=== PATIENT | female | born 1995 | race Caucasian/White ===

== ENCOUNTER 2017-09-19 12:04 | Emergency (ER) | payer OTHER ==
[~2017-09-19] VITALS: Ht 162.6 cm; Wt 68.0 kg
[~2017-09-19 12:04] MED LIST: ACETAMINOPHEN-1 EAC1 PO; ALLERGY10 M1 PO; BACTROBAN15 GM TOP; BENTYL 20 MG TA20 M1 PO; DELTASONE20 MG PO; FLEXERIL PO; KEFLEX500 MG PO; NORCO 5-325 TA1 EACH PO; PROMETHAZINE HC25 M1 PO; SERTRALINE HCL50 MG; TRINATE TABLET1 TAB PO; ZOFRAN ODT4 MG PO
[2017-09-19 12:41] LABS: URINE BILIRUBIN NEGATIVE (Negative); URINE BLOOD NEGATIVE (Negative); URINE CLARITY CLEAR; URINE COLOR YELLOW; URINE GLUCOSE-RANDOM NEGATIVE (Negative); URINE KETONES NEGATIVE (Negative); URINE LEUKOCYTES-REFLEX TRACE (Negative); URINE NITRITE-REFLEX NEGATIVE (Negative); URINE PROTEIN NEGATIVE (Negative); URINE SPECIFIC GRAVITY 1.025 (1.005-1.030); URINE UROBILINOGEN 0.2 E.U./dl (0.2-1.0)
[2017-09-19 12:55] LABS: ABSOLUTE BASOPHILS 0.1 thou/uL (0.0-0.2); ABSOLUTE EOSINOPHILS 0.1 thou/uL (0.0-0.7); ABSOLUTE LYMPHOCYTES 2.1 thou/uL (0.8-5.3); ABSOLUTE MONOCYTES 0.6 thou/uL (0.0-1.2); ABSOLUTE NEUTROPHILS 4.2 thou/uL (1.6-8.1); BASOPHILS 0.7 %; EOSINOPHILS 0.8 %; HEMATOCRIT 38.4 % (37.0-47.0); HEMOGLOBIN 13.1 gm/dL (12.0-15.0); LYMPHOCYTES 30.4 %; MCH 30.5 pg (26.0-34.0); MCHC 34.1 g/dL (28.0-37.0); MCV 89.6 fL (80.0-100.0); MONOCYTES 8.6 %; MPV 8.9 fl. (7.2-11.1); NUCLEATED RBCS 0 /100WBC; PLATELET COUNT* 238 thou/uL (150-400); POLYS 59.5 %; RBC 4.29 mil/uL (4.20-5.00); RDW-CV 12.4 % (10.5-14.5)
[2017-09-19 12:57] LABS: CASTS None Seen /LPF (None Seen); CRYSTALS None Seen /LPF (None Seen); MUCUS 0-3 Light strn/LPF (None Seen); SQUAMOUS >10 Many /LPF (0-3)
[2017-09-19 12:58] LABS: URINE RBC 0-2 Rare /HPF (0-2); URINE WBC-REFLEX 6-15 Few /HPF (0-5)
[2017-09-19 13:04] LABS: CALCIUM 8.7 mg/dL (8.5-10.1); CREATININE 0.7 mg/dL (0.6-1.3); POTASSIUM 3.9 mmol/L (3.5-5.1)
[2017-09-19 13:08] LABS: ALBUMIN 3.3 g/dL (3.4-5.0); TOTAL BILIRUBIN 0.2 mg/dL (<0.1-1.0); TOTAL PROTEIN 6.9 g/dL (6.4-8.2)
[2017-09-19] MEDS ORDERED: PROAIR HFA8.5 GM INH (13:49)
[2017-09-19] MEDS ORDERED: PEPCID20 MG PO (13:49)
[2017-09-19] MEDS ORDERED: KEFLEX500 M1 PO (13:49)
[2017-09-19 13:58] VITALS: BP 105/65
--- NOTE | 2017-09-20 15:57 | EKG ---
[place] [address] ELECTROCARDIOGRAM REPORT Name: BRENT MEYER Room: [facility]#: [id number] Admission: 09/19/17 Attend Phys: Discharge: 09/19/17 Date of : [birth year] Report #: [id number] THIS REPORT FOR: //name// 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: [facility]-[id number] : 1995 Requested By: Taylor Cadena Order Number: [id number] MD: Linden Estrada Measurements Intervals [place] Rate: 70 P: 45 SD: 127 QRS: 53 QRSD: 83 T: 24 QT: 400 QTc: 432 Interpretive Statements Sinus rhythm Atrial premature complex Compared to ECG 10/23/2015 14:35:50 Atrial premature complex(es) now present Sinus arrhythmia no longer present Electronically Signed On 09-20-2017 15:57:43 FINGERER by Linden Estrada [email or web address] <ELECTRONICALLY SIGNED> By: Serjio Estrada MD, [facility] 09/20/17 1557 1313 1313 Serjio Estrada MD, [facility] /EPI
== END 2017-09-19 13:59 | disposition home or self-care (01) ==
LOC: M.ERS 12:04
PROVIDERS: Physician Assistant
DX: N39.0 Urinary tract infection, site not specified (principal); R06.00 Dyspnea, unspecified

== ENCOUNTER 2018-01-02 13:45 | Emergency (ER) | payer OTHER ==
[~2018-01-02] VITALS: Ht 162.6 cm; Wt 86.2 kg
[~2018-01-02 13:45] MED LIST changes: +KEFLEX500 M1 PO; +PEPCID20 MG PO; +PROAIR HFA8.5 GM INH
[2018-01-02] MEDS ORDERED: CYMBALTA20 MG PO (13:57)
[2018-01-02] MEDS ORDERED: FLEXERIL PO (14:19)
[2018-01-02] MEDS ORDERED: TORADOL 10 MG T10 MG PO (14:19)
[2018-01-02 14:29] VITALS: BP 96/41
== END 2018-01-02 14:30 | disposition home or self-care (01) ==
LOC: M.ERS 13:45
DX: R25.2 Cramp and spasm (principal); F32.9 Major depressive disorder, single episode, unspecified; Z90.49 Acquired absence of other specified parts of digestive tract

== ENCOUNTER 2018-02-06 16:10 | Emergency (ER) | payer OTHER ==
[~2018-02-06] VITALS: Ht 162.6 cm; Wt 90.7 kg
[~2018-02-06 16:10] MED LIST changes: +CYMBALTA20 MG PO; +TORADOL 10 MG T10 MG PO
[2018-02-06 16:38] LABS: URINE BILIRUBIN NEGATIVE (Negative); URINE BLOOD 2+ (Negative); URINE CLARITY CLEAR; URINE COLOR YELLOW; URINE GLUCOSE-RANDOM NEGATIVE (Negative); URINE KETONES NEGATIVE (Negative); URINE LEUKOCYTES-REFLEX NEGATIVE (Negative); URINE NITRITE-REFLEX NEGATIVE (Negative); URINE PROTEIN NEGATIVE (Negative); URINE SPECIFIC GRAVITY >= 1.030 (1.005-1.030); URINE UROBILINOGEN 0.2 E.U./dl (0.2-1.0)
[2018-02-06] MEDS ORDERED: NAPROSYN500 MG PO (16:54)
[2018-02-06 17:02] VITALS: BP 126/88
[2018-02-06 17:02] LABS: SQUAMOUS 4-10 Moderate /LPF (0-3)
[2018-02-06 17:03] LABS: BACTERIA-REFLEX 1-9 Few /HPF (None Seen); CASTS None Seen /LPF (None Seen); URINE RBC 0-2 Rare /HPF (0-2); URINE WBC-REFLEX 0-5 Rare /HPF (0-5)
[2018-02-06 17:04] LABS: CRYSTALS None Seen /LPF (None Seen)
== END 2018-02-06 17:03 | disposition home or self-care (01) ==
LOC: M.ERS 16:10
PROVIDERS: Physician Assistant
DX: Z32.02 Encounter for pregnancy test, result negative (principal); N94.6 Dysmenorrhea, unspecified; F32.9 Major depressive disorder, single episode, unspecified; Z90.49 Acquired absence of other specified parts of digestive tract

== ENCOUNTER 2018-03-26 22:16 | Emergency (ER) | payer OTHER ==
[~2018-03-26] VITALS: Ht 162.6 cm; Wt 90.7 kg
[~2018-03-26 22:16] MED LIST changes: +NAPROSYN500 MG PO
[2018-03-26] MEDS ORDERED: BIRTH CONTROL (22:38)
[2018-03-27 00:08] LABS: URINE BILIRUBIN NEGATIVE (Negative); URINE BLOOD TRACE (Negative); URINE CLARITY CLEAR; URINE COLOR YELLOW; URINE GLUCOSE-RANDOM NEGATIVE (Negative); URINE KETONES NEGATIVE (Negative); URINE LEUKOCYTES TRACE (Negative); URINE NITRITE NEGATIVE (Negative); URINE PROTEIN NEGATIVE (Negative); URINE SPECIFIC GRAVITY >= 1.030 (1.005-1.030); URINE UROBILINOGEN 0.2 E.U./dl (0.2-1.0)
[2018-03-27 00:08] LABS: ABSOLUTE BASOPHILS 0.1 thou/uL (0.0-0.2); ABSOLUTE EOSINOPHILS 0.1 thou/uL (0.0-0.7); ABSOLUTE LYMPHOCYTES 4.3 thou/uL (0.8-5.3); ABSOLUTE MONOCYTES 0.9 thou/uL (0.0-1.2); ABSOLUTE NEUTROPHILS 6.1 thou/uL (1.6-8.1); BASOPHILS 0.5 %; EOSINOPHILS 0.9 %; HEMATOCRIT 40.3 % (37.0-47.0); HEMOGLOBIN 13.5 gm/dL (12.0-15.0); LYMPHOCYTES 37.4 %; MCH 30.2 pg (26.0-34.0); MCHC 33.6 g/dL (28.0-37.0); MCV 89.8 fL (80.0-100.0); MONOCYTES 8.2 %; MPV 8.5 fl. (7.2-11.1); NUCLEATED RBCS 0 /100WBC; PLATELET COUNT* 302 thou/uL (150-400); RBC 4.49 mil/uL (4.20-5.00); RDW-CV 12.4 % (10.5-14.5); WBC 11.5 thou/uL (4.0-11.0)
[2018-03-27 00:20] LABS: CALCIUM 9.1 mg/dL (8.5-10.1); CREATININE 0.8 mg/dL (0.6-1.3); POTASSIUM 3.6 mmol/L (3.5-5.1)
[2018-03-27 00:24] LABS: ALBUMIN 3.7 g/dL (3.4-5.0); TOTAL BILIRUBIN 0.2 mg/dL (<0.1-1.0); TOTAL PROTEIN 8.1 g/dL (6.4-8.2)
[2018-03-27 01:03] LABS: SQUAMOUS >10 Many /LPF (0-3)
[2018-03-27 01:04] LABS: CASTS None Seen /LPF (None Seen); URINE WBC 6-15 Few /HPF (0-5)
[2018-03-27 01:05] LABS: CRYSTALS None Seen /LPF (None Seen); URINE RBC 0-2 Rare /HPF (0-2)
[2018-03-27] MEDS ORDERED: ZOFRAN ODT4 M1 PO (01:56)
[2018-03-27] MEDS ORDERED: NORCO 5-325 TA1 EACH PO (02:12)
[2018-03-27 02:25] VITALS: BP 105/53
== END 2018-03-27 02:27 | disposition home or self-care (01) ==
LOC: M.ERS 22:16
PROVIDERS: Physician Assistant
DX: N39.0 Urinary tract infection, site not specified (principal); F32.9 Major depressive disorder, single episode, unspecified; Z90.49 Acquired absence of other specified parts of digestive tract

== ENCOUNTER 2018-10-08 19:35 | Emergency (ER) | payer OTHER ==
[~2018-10-08] VITALS: Ht 162.6 cm; Wt 88.5 kg
[~2018-10-08 19:35] MED LIST changes: +BIRTH CONTROL; +ZOFRAN ODT4 M1 PO
[2018-10-08] MEDS ORDERED: CELEXA20 MG PO (19:47)
[2018-10-08] MEDS ORDERED: PROCTO-MED HC30 GM RECTAL (20:19)
[2018-10-08 20:42] VITALS: BP 114/77
== END 2018-10-08 20:42 | disposition home or self-care (01) ==
LOC: M.ERS 19:35
DX: K64.4 Residual hemorrhoidal skin tags (principal); F32.9 Major depressive disorder, single episode, unspecified; Z90.49 Acquired absence of other specified parts of digestive tract

== ENCOUNTER 2018-10-24 11:58 | Emergency (ER) | payer OTHER ==
[~2018-10-24] VITALS: Ht 162.6 cm; Wt 86.2 kg
[~2018-10-24 11:58] MED LIST changes: +CELEXA20 MG PO; +PROCTO-MED HC30 GM RECTAL
[2018-10-24] MEDS ORDERED: MEDROLDOSEPACK PO (12:40)
[2018-10-24 12:51] VITALS: BP 119/74
== END 2018-10-24 12:53 | disposition home or self-care (01) ==
LOC: M.ERS 11:58
DX: J02.9 Acute pharyngitis, unspecified (principal); F32.9 Major depressive disorder, single episode, unspecified; Z90.49 Acquired absence of other specified parts of digestive tract

== ENCOUNTER 2018-11-30 20:54 | Emergency (ER) | payer OTHER ==
[~2018-11-30] VITALS: Ht 162.6 cm; Wt 83.9 kg
[~2018-11-30 20:54] MED LIST changes: +MEDROLDOSEPACK PO
[2018-11-30] MEDS ORDERED: CITALOPRAM HBR40 MG (21:07)
[2018-11-30] MEDS ORDERED: NAPROSYN500 M1 PO (22:02)
[2018-11-30] MEDS ORDERED: FLEXERIL PO (22:02)
[2018-11-30 22:25] VITALS: BP 123/68
== END 2018-11-30 22:25 | disposition home or self-care (01) ==
LOC: M.ERS 20:54
DX: R51 Headache (principal); M25.522 Pain in left elbow; F32.9 Major depressive disorder, single episode, unspecified; Z90.49 Acquired absence of other specified parts of digestive tract; V89.2XXA Person injured in unspecified motor-vehicle accident, traffic, initial encounter; Y93.89 Activity, other specified; Y92.89 Other specified places as the place of occurrence of the external cause; Y99.8 Other external cause status

== ENCOUNTER 2018-12-07 21:36 | Emergency (ER) | payer OTHER ==
[~2018-12-07] VITALS: Ht 162.6 cm; Wt 83.9 kg
[~2018-12-07 21:36] MED LIST changes: +CITALOPRAM HBR40 MG; +NAPROSYN500 M1 PO
[2018-12-07] MEDS ORDERED: TRAMADOL 50 MG50 MG PO (22:23)
[2018-12-07 22:31] VITALS: BP 120/61
== END 2018-12-07 22:31 | disposition home or self-care (01) ==
LOC: M.ERS 21:36
DX: S00.33XA Contusion of nose, initial encounter (principal); F32.9 Major depressive disorder, single episode, unspecified; Z90.49 Acquired absence of other specified parts of digestive tract; V49.69XA Unspecified car occupant injured in collision with other motor vehicles in traffic accident, initial encounter; Y93.89 Activity, other specified; Y92.89 Other specified places as the place of occurrence of the external cause; Y99.8 Other external cause status

== ENCOUNTER 2019-06-12 20:07 | Emergency (ER) | payer OTHER ==
[~2019-06-12] VITALS: Ht 162.6 cm; Wt 87.5 kg
[~2019-06-12 20:07] MED LIST changes: +TRAMADOL 50 MG50 MG PO
[2019-06-12] MEDS ORDERED: VIIBRYD10 MG PO (20:23)
[2019-06-12] MEDS ORDERED: ADIPEX-P37.5 MG PO (20:24)
[2019-06-12] MEDS ORDERED: LOESTRIN FE 1-1 EACH PO (20:25)
[2019-06-12 20:44] LABS: ABSOLUTE NEUTROPHILS 1.8 thou/uL (1.6-8.1); BASOPHILS 0.7 %; MPV 7.7 fl. (7.2-11.1); NUCLEATED RBCS 0 /100WBC
[2019-06-12 20:47] LABS: ABSOLUTE EOSINOPHILS 0.1 thou/uL (0.0-0.7); ABSOLUTE LYMPHOCYTES 4.2 thou/uL (0.8-5.3); ABSOLUTE MONOCYTES 0.8 thou/uL (0.0-1.2); EOSINOPHILS 1.8 %; HEMATOCRIT 34.2 % (37.0-47.0); LYMPHOCYTES 60.4 %; MCH 29.9 pg (26.0-34.0); MCHC 34.9 g/dL (28.0-37.0); MCV 85.7 fL (80.0-100.0); MONOCYTES 11.1 %; PLATELET COUNT* 214 thou/uL (150-400); RBC 3.99 mil/uL (4.20-5.00); RDW-CV 12.7 % (10.5-14.5)
[2019-06-12] MEDS ORDERED: COLACE100 MG PO (21:16)
[2019-06-12 21:29] VITALS: BP 92/65
[2019-06-13] MEDS ORDERED: APAP W/CODEINE1 TA2 PO (14:21)
== END 2019-06-12 21:17 | disposition home or self-care (01) ==
LOC: M.ERS 20:07
PROVIDERS: Nurse Practitioner Family
DX: K62.89 Other specified diseases of anus and rectum (principal); F32.9 Major depressive disorder, single episode, unspecified; Z90.49 Acquired absence of other specified parts of digestive tract

== ENCOUNTER 2019-06-13 10:45 | Emergency (ER) | payer OTHER ==
[~2019-06-13] VITALS: Ht 162.6 cm; Wt 86.2 kg
[~2019-06-13 10:45] MED LIST changes: +ADIPEX-P37.5 MG PO; +COLACE100 MG PO; +LOESTRIN FE 1-1 EACH PO; +VIIBRYD10 MG PO
[2019-06-13 11:43] LABS: HEMATOCRIT 36.1 % (37.0-47.0); HEMOGLOBIN 12.6 gm/dL (12.0-15.0); MCV 85.7 fL (80.0-100.0); MPV 7.8 fl. (7.2-11.1); NUCLEATED RBCS 0 /100WBC; PLATELET COUNT* 225 thou/uL (150-400); RBC 4.22 mil/uL (4.20-5.00); WBC 6.8 thou/uL (4.0-11.0)
[2019-06-13 11:49] LABS: CALCIUM 8.5 mg/dL (8.5-10.1); CREATININE 0.8 mg/dL (0.6-1.3); POTASSIUM 3.2 mmol/L (3.5-5.1)
[2019-06-13 11:54] LABS: ALBUMIN 3.5 g/dL (3.4-5.0); TOTAL PROTEIN 7.1 g/dL (6.4-8.2)
[2019-06-13 12:01] LABS: ABSOLUTE EOSINOPHILS 0.1 thou/uL (0.0-0.7); ABSOLUTE LYMPHOCYTES 4.8 thou/uL (0.8-5.3); ABSOLUTE MONOCYTES 0.6 thou/uL (0.0-1.2); ABSOLUTE NEUTROPHILS 1.4 thou/uL (1.6-8.1); PLATELET ESTIMATE ADEQUATE
[2019-06-13 13:50] LABS: URINE BILIRUBIN NEGATIVE (Negative); URINE BLOOD NEGATIVE (Negative); URINE CLARITY CLEAR; URINE COLOR YELLOW; URINE GLUCOSE-RANDOM NEGATIVE (Negative); URINE KETONES NEGATIVE (Negative); URINE LEUKOCYTES-REFLEX NEGATIVE (Negative); URINE NITRITE-REFLEX NEGATIVE (Negative); URINE PROTEIN NEGATIVE (Negative); URINE SPECIFIC GRAVITY <= 1.005 (1.005-1.030); URINE UROBILINOGEN 0.2 E.U./dl (0.2-1.0)
[2019-06-13] MEDS ORDERED: APAP W/CODEINE1 TA2 PO (14:21)
[2019-06-13 14:38] VITALS: BP 97/52
== END 2019-06-13 14:39 | disposition home or self-care (01) ==
LOC: M.ERS 10:45
PROVIDERS: Physician Assistant
DX: K64.4 Residual hemorrhoidal skin tags (principal); F32.9 Major depressive disorder, single episode, unspecified; Z90.49 Acquired absence of other specified parts of digestive tract

== ENCOUNTER 2019-07-07 15:24 | Emergency (ER) | payer OTHER ==
[~2019-07-07] VITALS: Ht 162.6 cm; Wt 84.8 kg
[~2019-07-07 15:24] MED LIST changes: +APAP W/CODEINE1 TA2 PO
[2019-07-07] MEDS ORDERED: WELLBUTRIN SR150 MG PO (15:40)
[2019-07-07 16:02] LABS: ABSOLUTE EOSINOPHILS 0.1 thou/uL (0.0-0.7); ABSOLUTE LYMPHOCYTES 2.9 thou/uL (0.8-5.3); ABSOLUTE MONOCYTES 0.7 thou/uL (0.0-1.2); BASOPHILS 0.5 %; EOSINOPHILS 0.8 %; HEMATOCRIT 39.1 % (37.0-47.0); HEMOGLOBIN 13.8 gm/dL (12.0-15.0); MCH 30.6 pg (26.0-34.0); MCHC 35.2 g/dL (28.0-37.0); MCV 86.7 fL (80.0-100.0); MONOCYTES 9.1 %; MPV 8.1 fl. (7.2-11.1); NUCLEATED RBCS 0 /100WBC; PLATELET COUNT* 242 thou/uL (150-400); POLYS 51.6 %; RDW-CV 13.3 % (10.5-14.5); WBC 7.7 thou/uL (4.0-11.0)
[2019-07-07 16:10] LABS: CALCIUM 8.9 mg/dL (8.5-10.1); CREATININE 0.8 mg/dL (0.6-1.3); POTASSIUM 3.6 mmol/L (3.5-5.1)
[2019-07-07 16:16] LABS: URINE BILIRUBIN NEGATIVE (Negative); URINE BLOOD 3+ (Negative); URINE CLARITY CLEAR; URINE COLOR YELLOW; URINE GLUCOSE-RANDOM NEGATIVE (Negative); URINE KETONES NEGATIVE (Negative); URINE LEUKOCYTES-REFLEX NEGATIVE (Negative); URINE NITRITE-REFLEX NEGATIVE (Negative); URINE PROTEIN NEGATIVE (Negative); URINE SPECIFIC GRAVITY 1.015 (1.005-1.030); URINE UROBILINOGEN 0.2 E.U./dl (0.2-1.0)
[2019-07-07 16:23] LABS: SQUAMOUS >10 Many /LPF (0-3)
[2019-07-07 16:24] LABS: URINE RBC >20 Many /HPF (0-2); URINE WBC-REFLEX 0-5 Rare /HPF (0-5)
[2019-07-07 16:25] LABS: BACTERIA-REFLEX >30 Many /HPF (None Seen); CASTS None Seen /LPF (None Seen); CRYSTALS None Seen /LPF (None Seen); MUCUS 4-6 Moderate strn/LPF (None Seen)
[2019-07-07] MEDS ORDERED: ZOFRAN ODT4 MG PO (16:54)
[2019-07-07 17:05] VITALS: BP 125/85
== END 2019-07-07 17:06 | disposition home or self-care (01) ==
LOC: M.ERS 15:24
PROVIDERS: Nurse Practitioner Psychiatric/Mental Health
DX: R11.2 Nausea with vomiting, unspecified (principal); R10.12 Left upper quadrant pain; F32.9 Major depressive disorder, single episode, unspecified; Z90.49 Acquired absence of other specified parts of digestive tract

== ENCOUNTER 2019-08-20 10:52 | Emergency (ER) | payer OTHER ==
[~2019-08-20] VITALS: Ht 162.6 cm; Wt 79.8 kg
[~2019-08-20 10:52] MED LIST changes: +WELLBUTRIN SR150 MG PO
[2019-08-20 11:12] LABS: URINE BLOOD TRACE (Negative); URINE CLARITY CLEAR; URINE COLOR YELLOW; URINE GLUCOSE-RANDOM NEGATIVE (Negative); URINE KETONES 1+ (Negative); URINE LEUKOCYTES-REFLEX 1+ (Negative); URINE NITRITE-REFLEX NEGATIVE (Negative); URINE PROTEIN TRACE (Negative); URINE SPECIFIC GRAVITY 1.025 (1.005-1.030); URINE UROBILINOGEN 0.2 E.U./dl (0.2-1.0)
[2019-08-20 11:17] LABS: ICTOTEST (BILI CONFIRMATORY) Negative (Negative); URINE BILIRUBIN 1+ (Negative)
[2019-08-20 11:28] LABS: ABSOLUTE MONOCYTES 0.8 thou/uL (0.0-1.2); ABSOLUTE NEUTROPHILS 9.3 thou/uL (1.6-8.1); BASOPHILS 0.1 %; EOSINOPHILS 0.2 %; HEMATOCRIT 43.5 % (37.0-47.0); HEMOGLOBIN 14.9 gm/dL (12.0-15.0); LYMPHOCYTES 9.1 %; MCHC 34.2 g/dL (28.0-37.0); MCV 87.8 fL (80.0-100.0); MONOCYTES 7.3 %; MPV 9.2 fl. (7.2-11.1); NUCLEATED RBCS 0 /100WBC; PLATELET COUNT* 247 thou/uL (150-400); POLYS 83.3 %; RBC 4.96 mil/uL (4.20-5.00); RDW-CV 12.5 % (10.5-14.5); WBC 11.2 thou/uL (4.0-11.0)
[2019-08-20 11:29] LABS: SQUAMOUS >10 Many /LPF (0-3)
[2019-08-20 11:31] LABS: BACTERIA-REFLEX >30 Many /HPF (None Seen); MUCUS >6 Heavy strn/LPF (None Seen); URINE RBC 0-2 Rare /HPF (0-2); URINE WBC-REFLEX 6-15 Few /HPF (0-5)
[2019-08-20 11:32] LABS: CASTS None Seen /LPF (None Seen); CRYSTALS None Seen /LPF (None Seen)
[2019-08-20 11:36] LABS: CALCIUM 9.1 mg/dL (8.5-10.1); CREATININE 0.9 mg/dL (0.6-1.3); POTASSIUM 3.7 mmol/L (3.5-5.1)
[2019-08-20 11:41] LABS: ALBUMIN 4.4 g/dL (3.4-5.0); TOTAL BILIRUBIN 0.7 mg/dL (<0.1-1.0); TOTAL PROTEIN 8.1 g/dL (6.4-8.2)
[2019-08-20] MEDS ORDERED: ZOFRAN4 MG PO (12:30)
[2019-08-20] MEDS ORDERED: MACROBID 100 M100 M1 PO (12:30)
[2019-08-20 12:35] VITALS: BP 102/51
== END 2019-08-20 12:35 | disposition home or self-care (01) ==
LOC: M.ERS 10:52
PROVIDERS: Nurse Practitioner Family
DX: N39.0 Urinary tract infection, site not specified (principal); R11.2 Nausea with vomiting, unspecified; F32.9 Major depressive disorder, single episode, unspecified; Z90.49 Acquired absence of other specified parts of digestive tract